=== PATIENT | male | born 1990 | race Two or more races ===

== ENCOUNTER 2018-03-19 19:25 | Inpatient (IN) | payer MEDICAID ==
[~2018-03-19] VITALS: Ht 172.7 cm; Wt 69.9 kg
[~2018-03-19 19:25] MED LIST: INSU70IN9 SC
[2018-03-19 22:50] LABS: Basophils # (auto) 0.1 uL; Basophils % (auto) 0.7 % (0.0-2.0); Eosinophils # (auto) 0.4 uL; Eosinophils % (auto) 3.8 % (0.0-7.0); Hematocrit 42.1 % (41.0-53.0); Hemoglobin 14.4 g/dL (13.5-17.5); Lymphocytes # (auto) 2.2 uL; Lymphocytes % (auto) 19.7 % (10.0-50.0); Mean Corpuscular Hemoglobin 28.2 pg (28.0-32.0); Mean Corpuscular Hgb Conc. 34.1 g/dL (32.0-36.0); Mean Corpuscular Volume 82.7 fL (80.0-100.0); Monocytes # (auto) 0.9 uL; Monocytes % (auto) 7.8 % (0.0-12.0); Neutrophils # (auto) 7.8 uL; Platelet Count (auto) 272 10^3/uL (140-450); White Blood Cell 11.4 10^3/uL (4.4-10.8)
[2018-03-19 23:07] LABS: Albumin 3.6 g/dL (3.4-5.0); Calcium 8.9 mg/dL (8.5-10.1)
[2018-03-19 23:09] LABS: Total Protein 7.7 g/dL (6.4-8.2)
[2018-03-19 23:17] LABS: Bilirubin, Total 0.4 mg/dL (0.2-1.0)
[2018-03-19 23:37] LABS: BUN/Creatinine Ratio 12.1
[2018-03-19] MEDS ORDERED: InsuLIN REG 1unit/0.01ml Soln (100units/ml) IV ONE (23:45)
[2018-03-19] MEDS ORDERED: SODIUM CHLORIDE 0.9% 1,000 ML IV ONE (23:45)
[2018-03-20] MEDS ORDERED: cefTRIAXone 1GM/10ml IVPUSH 10 ML IV ONE (03:15)
[2018-03-20] MEDS ORDERED: VANCOMYCIN 1GM/250ML 250 ML IV ONE (03:15)
[2018-03-20] MEDS ORDERED: DEXTROSE (50%) 50ML SYRG IV PRN (03:45)
[2018-03-20] MEDS ORDERED: HYDROcodone-ACET 5/325MG TAB PO PRN (03:45)
[2018-03-20] MEDS ORDERED: ACETAMINOPHEN 325 MG TAB PO PRN (03:45)
[2018-03-20] MEDS ORDERED: ONDANSETRON HCL 4 MG/2 ML VIAL IV PRN (03:45)
[2018-03-20] MEDS: SODIUM CHLORIDE 0.9% 1,000 ML IV SCH ×2 (04:16→05:16)
[2018-03-20] MEDS: ACCU-CHEK COMFORT CURVE STRIP VI SCH ×2 (06:00→12:13)
[2018-03-20] MEDS: InsuLIN REG 1unit/0.01ml Soln (100units/ml) SC SCH ×2 (06:00→12:19)
[2018-03-20] MEDS: CLINDAMYCIN 600MG IV 50 ML IV SCH ×2 (06:00→14:32)
[2018-03-20] MEDS ORDERED: cefTRIAXone 1GM/10ml IVPUSH 10 ML IV SCH (09:00)
[2018-03-20] MEDS ORDERED: FAMOTIDINE 20 MG TAB PO SCH (10:00)
[2018-03-20 10:36] LABS: INR 0.96 (0.9-1.15); Partial Thromboplastin Time 29.2 sec (23.78-33.04); Prothrombin Time 10.3 sec (9.27-12.13)
[2018-03-20] MEDS ORDERED: METHADONE HCL 10 MG TAB PO SCH (14:30)
[2018-03-20 15:31] VITALS: BP 111/63
== END 2018-03-20 16:19 | disposition left against medical advice (07) | DRG 720 ==
LOC: ER 19:25 → OVERFLOW 19:26
PROVIDERS: ADMIT Nurse Practitioner; ATTEND Internal Medicine
DX: A41.9 Sepsis, unspecified organism (principal); E10.65 Type 1 diabetes mellitus with hyperglycemia; E11.9 Type 2 diabetes mellitus without complications; L02.413 Cutaneous abscess of right upper limb; F17.210 Nicotine dependence, cigarettes, uncomplicated; F11.10 Opioid abuse, uncomplicated; L03.113 Cellulitis of right upper limb; Z53.21 Procedure and treatment not carried out due to patient leaving prior to being seen by health care provider; Z71.6 Tobacco abuse counseling; Z79.4 Long term (current) use of insulin; Z91.14 Patient's other noncompliance with medication regimen; Z91.19 Patient's noncompliance with other medical treatment and regimen
CPT/HCPCS: 36415; 76881; 80053; 82010; 82962; 83036; 85025; 85610; 85730; 87040; 96361; 96365; 96375; J0696; J1815; J3490

== ENCOUNTER 2019-03-09 22:22 | Inpatient (IN) | payer MEDICAID ==
[~2019-03-09] VITALS: Ht 172.7 cm; Wt 59.0 kg
[~2019-03-09 22:22] MED LIST changes: +INSREG3 SC; +INSU70IN3 SC; -INSU70IN9 SC
[2019-03-10] MEDS ORDERED: cefTRIAXone SOD 1,000 MG VL IM ONE (01:15)
[2019-03-10] MEDS ORDERED: SODIUM CHLORIDE 0.9% 1,000 ML IV ONE ×2 (01:45→02:45)
[2019-03-10] MEDS ORDERED: cefTRIAXone 1GM/50ML D5W 50 ML IV ONE (02:00)
[2019-03-10] MEDS ORDERED: LIDOCAINE 1% HCL (LOCAL ANESTH.) INJ 20ML MDV IJ ONE (02:00)
[2019-03-10 02:12] LABS: Basophils # (auto) 0.1 uL; Eosinophils # (auto) 0.1 uL; Nucleated Red Blood Cells % 0.1 %
[2019-03-10 02:14] LABS: Basophils % (auto) 0.6 % (0.0-2.0); Eosinophils % (auto) 0.9 % (0.0-7.0); Hematocrit 45.7 % (41.0-53.0); Lymphocytes # (auto) 2.1 uL; Lymphocytes % (auto) 17.3 % (10.0-50.0); Mean Corpuscular Hemoglobin 27.8 pg (28.0-32.0); Mean Corpuscular Hgb Conc. 32.9 g/dL (32.0-36.0); Mean Corpuscular Volume 84.6 fL (80.0-100.0); Monocytes # (auto) 0.8 uL; Monocytes % (auto) 6.5 % (0.0-12.0); Neutrophils # (auto) 8.9 uL; Neutrophils % (auto) 74.7 % (37.0-80.0); Platelet Count (auto) 508 10^3/uL (140-450); Red Cell Distribution Width 13.7 % (11.8-14.3); White Blood Cell 11.9 10^3/uL (4.4-10.8)
[2019-03-10 02:20] LABS: INR < 0.93 (0.9-1.15); Partial Thromboplastin Time 29.1 sec (23.64-32.05)
[2019-03-10 02:21] LABS: Albumin 3.9 g/dL (3.4-5.0); Calcium 8.8 mg/dL (8.5-10.1); Potassium 4.2 mmol/L (3.5-5.1)
[2019-03-10 02:23] LABS: Bilirubin, Total 0.6 mg/dL (0.2-1.0); Total Protein 8.4 g/dL (6.4-8.2)
[2019-03-10 02:26] LABS: BUN/Creatinine Ratio 8.6
[2019-03-10] MEDS ORDERED: InsuLIN REG 1unit/0.01ml Soln (100units/ml) IV ONE ×2 (02:30→04:15)
[2019-03-10] MEDS ORDERED: LORazepam 2MG/ML-1ML VIAL IV ONE (04:15)
[2019-03-10] MEDS ORDERED: InsuLIN R (HUMAN) 100 UNITS in SODIUM CHL 0.9% 99 ML IV SCH (04:54)
[2019-03-10] MEDS ORDERED: MORPHINE SULF INJ 2 MG/ML SYRINGE 1ML IV PRN (05:00)
[2019-03-10] MEDS ORDERED: LORazepam 2MG/ML-1ML VIAL IV PRN (05:00)
[2019-03-10] MEDS ORDERED: NITROGLYCERIN 0.4 MG SL TAB SL PRN (05:00)
[2019-03-10] MEDS ORDERED: VANCOMYCIN PER PHARMACY 0 MG IV SCH (05:00)
[2019-03-10] MEDS ORDERED: DEXTROSE (50%) 50ML SYRG IV PRN (05:00)
[2019-03-10] MEDS ORDERED: InsuLIN REG 1unit/0.01ml Soln (100units/ml) ONE (05:10)
[2019-03-10 05:38] LABS: Basophils # (auto) 0 uL; Basophils % (auto) 0.4 % (0.0-2.0); Eosinophils # (auto) 0.2 uL; Eosinophils % (auto) 1.3 % (0.0-7.0); Hematocrit 41.2 % (41.0-53.0); Hemoglobin 13.5 g/dL (13.5-17.5); Lymphocytes # (auto) 1.9 uL; Lymphocytes % (auto) 16.2 % (10.0-50.0); Mean Corpuscular Hemoglobin 27.5 pg (28.0-32.0); Mean Corpuscular Hgb Conc. 32.8 g/dL (32.0-36.0); Mean Corpuscular Volume 83.8 fL (80.0-100.0); Monocytes # (auto) 0.9 uL; Monocytes % (auto) 7.1 % (0.0-12.0); Platelet Count (auto) 446 10^3/uL (140-450); Red Blood Cells 4.92 10^6/uL (4.5-5.90); Red Cell Distribution Width 13.1 % (11.8-14.3)
[2019-03-10] MEDS: SODIUM CHLORIDE 0.9% 1,000 ML IV SCH ×2 (05:43→07:03)
[2019-03-10] MEDS ORDERED: VANCOMYCIN 1GM/250ML 250 ML IV ONE (06:00)
[2019-03-10 06:10] LABS: BUN/Creatinine Ratio 9.7; Magnesium 1.7 mg/dL (1.6-2.6); Phosphorus 1.3 mg/dL (2.5-4.90); Potassium 3.5 mmol/L (3.5-5.1)
[2019-03-10] MEDS: ACCU-CHEK COMFORT CURVE STRIP VI SCH ×4 (06:17→10:30)
[2019-03-10 06:37] LABS: Urine WBC None Seen /hpf (0 - 3)
[2019-03-10 07:00] LABS: Alcohol, Urine < 3.0 mg/dL (0-5); Amphetamine Screen, Urine NEGATIVE (NEGATIVE); Barbiturate Scree,Urine NEGATIVE (NEGATIVE); Benzodiazephine Screen, Urine NEGATIVE (NEGATIVE); Cannabinoid Screen, Urine NEGATIVE (NEGATIVE); Cocaine Screen, Urine NEGATIVE (NEGATIVE); Opiate Scree,Urine POSITIVE (NEGATIVE); Phencyclidine Screen, Urine NEGATIVE (NEGATIVE)
[2019-03-10 07:45] LABS: Urine Bacteria NONE SEEN /hpf (None Seen); Urine Blood Negative /uL (Negative); Urine Mucus FEW (None Seen); Urine Specific Gravity 1.024 (1.001-1.035)
[2019-03-10] MEDS ORDERED: FAMOTIDINE (10MG/ML) 2ML VL IV SCH (10:00)
[2019-03-10] MEDS ORDERED: SODIUM CHLORIDE 0.9% 1,000 ML IV SCH (10:54)
[2019-03-10 11:00] VITALS: BP 103/67
[2019-03-10] MEDS ORDERED: D5W/SOD CHL 0.45% 1,000 ML IV SCH (11:00)
[2019-03-10 11:30] LABS: Calcium 8.1 mg/dL (8.5-10.1); Potassium 3.3 mmol/L (3.5-5.1)
[2019-03-10] MEDS ORDERED: POTASSIUM CHLORIDE 40 MEQ, LIDOCAINE 1% (LOCAL ANESTH.) 4 ML in SODIUM CHL 0.9% 100 ML IV ONE (11:45)
[2019-03-10] MEDS ORDERED: D5W/SOD CHL 0.45%/KCL 40MEQ 1,000 ML IV SCH (15:45)
[2019-03-10] MEDS ORDERED: POTASSIUM EFFERVESENT TAB 25 MEQ GT ONE (15:45)
[2019-03-10] MEDS ORDERED: VANCOMYCIN 1GM/250ML 250 ML IV SCH (19:00)
[2019-03-10] MEDS ORDERED: INSULIN LANTUS (GLARGINE) 1 /0.01ml (100units/ml) SC SCH (22:00)
[2019-03-11] MEDS ORDERED: cefTRIAXone 1GM/50ML D5W 50 ML IV SCH
== END 2019-03-10 11:25 | disposition left against medical advice (07) | DRG 720 ==
LOC: ER 22:24 → TELE 22:25
PROVIDERS: ADMIT Nurse Practitioner Acute Care; ATTEND Internal Medicine Nephrology
PROC: 0X990ZZ Drainage of Left Upper Arm, Open Approach (ICD-10-PCS; principal; 2019-03-10)
DX: A41.9 Sepsis, unspecified organism (principal); E10.10 Type 1 diabetes mellitus with ketoacidosis without coma; R64 Cachexia; L02.414 Cutaneous abscess of left upper limb; L03.114 Cellulitis of left upper limb; E86.0 Dehydration; F41.9 Anxiety disorder, unspecified; I10 Essential (primary) hypertension; Z53.21 Procedure and treatment not carried out due to patient leaving prior to being seen by health care provider; Z79.4 Long term (current) use of insulin; Z82.49 Family history of ischemic heart disease and other diseases of the circulatory system; Z83.3 Family history of diabetes mellitus; Z87.891 Personal history of nicotine dependence; Z91.14 Patient's other noncompliance with medication regimen; Z68.1 Body mass index [BMI] 19.9 or less, adult; Z79.899 Other long term (current) drug therapy
CPT/HCPCS: 10060; 36415; 36600; 80048; 80053; 80307; 81001; 82010; 82805; 82962; 83036; 83605; 83735; 83930; 84100; 85025; 85610; 85730; 87040; 93306; 96365; 96367; 96375; 99291; G0378; J0696; J1815; J2001; J3490

== ENCOUNTER 2019-03-28 14:52 | Emergency (ER) | payer MEDICAID ==
[~2019-03-28] VITALS: Ht 177.8 cm; Wt 56.2 kg
[2019-03-28 15:19] LABS: Basophils # (auto) 0.1 uL; Basophils % (auto) 1.1 % (0.0-2.0); Eosinophils # (auto) 0.1 uL; Eosinophils % (auto) 2.8 % (0.0-7.0); Hematocrit 37.8 % (41.0-53.0); Hemoglobin 12.4 g/dL (13.5-17.5); Lymphocytes # (auto) 1.1 uL; Lymphocytes % (auto) 24.4 % (10.0-50.0); Mean Corpuscular Hemoglobin 28.2 pg (28.0-32.0); Mean Corpuscular Hgb Conc. 32.8 g/dL (32.0-36.0); Monocytes # (auto) 0.4 uL; Monocytes % (auto) 8.4 % (0.0-12.0); Neutrophils % (auto) 63.3 % (37.0-80.0); Nucleated Red Blood Cells % 0.1 %; Platelet Count (auto) 288 10^3/uL (140-450); Red Cell Distribution Width 14.6 % (11.8-14.3); White Blood Cell 4.7 10^3/uL (4.4-10.8)
[2019-03-28 15:50] LABS: Albumin 3.1 g/dL (3.4-5.0); Calcium 7.5 mg/dL (8.5-10.1); Potassium 4.1 mmol/L (3.5-5.1)
[2019-03-28 15:54] LABS: Urine Bacteria NONE SEEN /hpf (None Seen); Urine Blood Negative /uL (Negative); Urine Specific Gravity 1.028 (1.001-1.035); Urine WBC <1 /hpf (0 - 3)
[2019-03-28 15:59] LABS: BUN/Creatinine Ratio 8.3; Bilirubin, Total 0.5 mg/dL (0.2-1.0); Total Protein 6.2 g/dL (6.4-8.2)
[2019-03-28] MEDS ORDERED: InsuLIN R (HUMAN) 100 UNITS in SODIUM CHL 0.9% 99 ML IV SCH ×2 (17:20→20:32)
[2019-03-28] MEDS ORDERED: InsuLIN REG 1unit/0.01ml Soln (100units/ml) IV ONE (17:30)
[2019-03-28] MEDS ORDERED: DEXTROSE (50%) 50ML SYRG IV PRN (17:30)
[2019-03-28] MEDS ORDERED: MORPHINE SULF INJ 2 MG/ML SYRINGE 1ML IV PRN (18:30)
[2019-03-28] MEDS ORDERED: NITROGLYCERIN 0.4 MG SL TAB SL PRN (18:30)
[2019-03-28] MEDS ORDERED: SODIUM CHLORIDE 0.9% 1,000 ML IV SCH (18:30)
[2019-03-28] MEDS ORDERED: LORazepam 2MG/ML-1ML VIAL IV PRN (18:30)
[2019-03-28] MEDS ORDERED: ONDANSETRON ODT 4 MG TAB PO PRN (18:30)
[2019-03-28] MEDS ORDERED: SODIUM CHLORIDE 0.9% 2,000 ML IV ONE (18:30)
[2019-03-28] MEDS ORDERED: MORPHINE SULFATE 4 MG/ML SYR/VIAL IV PRN (18:30)
[2019-03-28] MEDS: ACCU-CHEK COMFORT CURVE STRIP VI SCH ×3 (18:42→21:00)
[2019-03-28 19:26] LABS: Alcohol, Urine < 3.0 mg/dL (0-5); Amphetamine Screen, Urine POSITIVE (NEGATIVE); Barbiturate Scree,Urine NEGATIVE (NEGATIVE); Benzodiazephine Screen, Urine NEGATIVE (NEGATIVE); Cannabinoid Screen, Urine NEGATIVE (NEGATIVE); Cocaine Screen, Urine NEGATIVE (NEGATIVE); Opiate Scree,Urine POSITIVE (NEGATIVE); Phencyclidine Screen, Urine NEGATIVE (NEGATIVE)
[2019-03-28] MEDS ORDERED: NICOTINE 14 MG/24HR TOPICAL PATCH TD ONE (21:30)
[2019-03-28 23:00] VITALS: BP 95/58
[2019-03-29] MEDS ORDERED: NICOTINE 14 MG/24HR TOPICAL PATCH TD SCH (10:00)
== END 2019-03-28 23:45 | disposition left against medical advice (07) ==
LOC: EDBD 14:52 → ER 14:52 → UNDOADMIN 14:53 → TELE 14:53 → ER 23:45
DX: E11.65 Type 2 diabetes mellitus with hyperglycemia (principal); E11.10 Type 2 diabetes mellitus with ketoacidosis without coma; E83.51 Hypocalcemia; E46 Unspecified protein-calorie malnutrition; I10 Essential (primary) hypertension; F12.90 Cannabis use, unspecified, uncomplicated; F15.90 Other stimulant use, unspecified, uncomplicated; Z91.19 Patient's noncompliance with other medical treatment and regimen; Z79.4 Long term (current) use of insulin; Z53.29 Procedure and treatment not carried out because of patient's decision for other reasons
CPT/HCPCS: 36415; 80053; 80307; 81001; 82010; 82962; 83690; 83735; 84100; 85025; 96361; 96365; 99283; J1815; J7030; 80048; 96376

== ENCOUNTER 2019-03-28 23:59 | Inpatient (IN) | payer MEDICAID ==
[~2019-03-28] VITALS: Ht 172.7 cm; Wt 56.7 kg
[2019-03-29] MEDS ORDERED: InsuLIN REG 1unit/0.01ml Soln (100units/ml) IV ONE (04:30)
[2019-03-29] MEDS ORDERED: SODIUM CHLORIDE 0.9% 3,000 ML IV ONE (04:30)
[2019-03-29] MEDS ORDERED: SODIUM BICARBONATE 8.4 % INJ 50ML VIAL IV ONE (04:45)
[2019-03-29] MEDS ORDERED: InsuLIN R (HUMAN) 100 UNITS in SODIUM CHL 0.9% 99 ML IV SCH ×2 (04:47→09:18)
[2019-03-29] MEDS ORDERED: SODIUM CHLORIDE 0.9% 1,000 ML IV ONE (05:00)
[2019-03-29] MEDS ORDERED: DEXTROSE (50%) 50ML SYRG IV PRN ×2 (05:00→12:00)
[2019-03-29 05:22] LABS: Urine Bacteria NONE SEEN /hpf (None Seen); Urine Blood Negative /uL (Negative); Urine Specific Gravity 1.032 (1.001-1.035); Urine WBC 1 /hpf (0 - 3)
[2019-03-29] MEDS ORDERED: InsuLIN REG 1unit/0.01ml Soln (100units/ml) ONE (05:24)
[2019-03-29 06:06] LABS: Alcohol, Urine < 3.0 mg/dL (0-5); Amphetamine Screen, Urine POSITIVE (NEGATIVE); Barbiturate Scree,Urine NEGATIVE (NEGATIVE); Benzodiazephine Screen, Urine NEGATIVE (NEGATIVE); Cannabinoid Screen, Urine POSITIVE (NEGATIVE); Cocaine Screen, Urine NEGATIVE (NEGATIVE); Opiate Scree,Urine POSITIVE (NEGATIVE); Phencyclidine Screen, Urine NEGATIVE (NEGATIVE)
[2019-03-29 06:27] LABS: Basophils # (auto) 0.1 uL; Eosinophils # (auto) 0.2 uL; Eosinophils % (auto) 3.1 % (0.0-7.0); Lymphocytes # (auto) 1.9 uL; Mean Corpuscular Hemoglobin 28.5 pg (28.0-32.0); Mean Corpuscular Hgb Conc. 33.3 g/dL (32.0-36.0); Mean Corpuscular Volume 85.7 fL (80.0-100.0); Monocytes # (auto) 0.6 uL; Monocytes % (auto) 7.6 % (0.0-12.0); Neutrophils # (auto) 4.5 uL; Neutrophils % (auto) 62.3 % (37.0-80.0); Nucleated Red Blood Cells % 0.1 %; Platelet Count (auto) 300 10^3/uL (140-450); Red Cell Distribution Width 15.2 % (11.8-14.3); White Blood Cell 7.3 10^3/uL (4.4-10.8)
[2019-03-29] MEDS: ACCU-CHEK COMFORT CURVE STRIP VI SCH ×6 (06:28→14:06)
[2019-03-29 06:45] LABS: Magnesium 1.7 mg/dL (1.6-2.6)
[2019-03-29 06:49] LABS: BUN/Creatinine Ratio 7.1; Phosphorus 1.2 mg/dL (2.5-4.90)
[2019-03-29] MEDS ORDERED: MORPHINE SULF INJ 2 MG/ML SYRINGE 1ML IV PRN (07:00)
[2019-03-29] MEDS ORDERED: NITROGLYCERIN 0.4 MG SL TAB SL PRN (07:00)
[2019-03-29] MEDS ORDERED: ONDANSETRON HCL 4 MG/2 ML VIAL IV PRN (07:00)
[2019-03-29 07:02] LABS: Potassium 2.8 mmol/L (3.5-5.1)
[2019-03-29 07:38] LABS: Calcium 7.3 mg/dL (8.5-10.1)
[2019-03-29] MEDS: SODIUM CHLORIDE 0.9% 1,000 ML IV SCH ×2 (07:44→08:47)
[2019-03-29] MEDS ORDERED: SODIUM CHLORIDE 0.9% 1,000 ML IV SCH ×3 (08:47→12:00)
[2019-03-29] MEDS: POTASSIUM CHL 20MEQ/100ML 100 ML IV SCH ×2 (08:48→10:42)
[2019-03-29 11:29] LABS: BUN/Creatinine Ratio 6.3; Calcium 7.1 mg/dL (8.5-10.1)
[2019-03-29 11:33] LABS: Potassium 2.9 mmol/L (3.5-5.1)
[2019-03-29] MEDS ORDERED: INSULIN LANTUS (GLARGINE) 1 /0.01ml (100units/ml) SC ONE (11:45)
[2019-03-29] MEDS ORDERED: InsuLIN REG 1unit/0.01ml Soln (100units/ml) SC SCH (12:00)
[2019-03-29] MEDS ORDERED: POTASSIUM CHL 20 Meq TABLET PO ONE (12:00)
[2019-03-29] MEDS ORDERED: ACCU-CHEK COMFORT CURVE STRIP VI SCH (12:00)
[2019-03-29 13:32] VITALS: BP 114/62
[2019-03-29 13:59] LABS: BUN/Creatinine Ratio 4.6; Calcium 7.5 mg/dL (8.5-10.1)
[2019-03-29] MEDS ORDERED: INSULIN LANTUS (GLARGINE) 1 /0.01ml (100units/ml) SC SCH (22:00)
[2019-03-30 10:04] LABS: Hepatitis B Surface Antibody Negative
[2019-03-30 10:40] LABS: Hepatitis A Total Antibody Positive
[2019-03-30 13:45] LABS: Hepatitis B Surface Antigen Negative (Negative); Hepatitis C Antibody Negative (Negative)
[2019-03-30 14:08] LABS: Hepatitis B Core Total AB Negative
== END 2019-03-29 14:03 | disposition left against medical advice (07) | DRG 420 ==
LOC: ER 03-29 00:03 → OVERFLOW 03-29 00:04
PROVIDERS: ADMIT Nurse Practitioner; ATTEND Nurse Practitioner
DX: E11.10 Type 2 diabetes mellitus with ketoacidosis without coma (principal); E86.0 Dehydration; E87.6 Hypokalemia; I10 Essential (primary) hypertension; Z53.29 Procedure and treatment not carried out because of patient's decision for other reasons; F19.10 Other psychoactive substance abuse, uncomplicated; F15.10 Other stimulant abuse, uncomplicated; F14.10 Cocaine abuse, uncomplicated; F11.10 Opioid abuse, uncomplicated; Z79.4 Long term (current) use of insulin; Z72.0 Tobacco use; Z71.6 Tobacco abuse counseling
CPT/HCPCS: 36415; 36600; 80048; 80307; 81001; 82010; 82805; 82962; 83735; 83930; 84100; 85025; 86704; 86706; 86708; 86803; 87340; 96361; 96365; 96367; 99291; G0378; J1815; J3480

== ENCOUNTER 2019-04-08 21:33 | Inpatient (IN) | payer MEDICAID ==
[~2019-04-08] VITALS: Ht 172.7 cm; Wt 59.0 kg
[2019-04-08 23:07] LABS: Basophils # (auto) 0.1 uL; Basophils % (auto) 0.6 % (0.0-2.0); Eosinophils # (auto) 0 uL; Eosinophils % (auto) 0.1 % (0.0-7.0); Hematocrit 48.7 % (41.0-53.0); Hemoglobin 15.4 g/dL (13.5-17.5); Lymphocytes # (auto) 1.5 uL; Lymphocytes % (auto) 7.6 % (10.0-50.0); Mean Corpuscular Hemoglobin 27.6 pg (28.0-32.0); Mean Corpuscular Hgb Conc. 31.6 g/dL (32.0-36.0); Mean Corpuscular Volume 87.3 fL (80.0-100.0); Monocytes # (auto) 1.4 uL; Monocytes % (auto) 6.7 % (0.0-12.0); Neutrophils # (auto) 17.3 uL; Nucleated Red Blood Cells % 0.1 %; Platelet Count (auto) 403 10^3/uL (140-450); Red Blood Cells 5.58 10^6/uL (4.5-5.90); Red Cell Distribution Width 15.6 % (11.8-14.3); White Blood Cell 20.4 10^3/uL (4.4-10.8)
[2019-04-08] MEDS ORDERED: ONDANSETRON HCL 4 MG/2 ML VIAL IV ONE (23:15)
[2019-04-08] MEDS ORDERED: MORPHINE SULFATE 4 MG/ML SYR/VIAL IV ONE (23:15)
[2019-04-08 23:27] LABS: Alanine Aminotransferase 16 U/L (16-61); Albumin 3.5 g/dL (3.4-5.0); Aspartate Aminotransferase 10 U/L (15-37); BUN/Creatinine Ratio 11.3; Blood Alcohol < 3.0 mg/dL (0-5); Blood Urea Nitrogen 13 mg/dL (7-18); Calcium 7.8 mg/dL (8.5-10.1); Chloride 99 mmol/L (98-107); GFR African American 99 mL/min; GFR Non-African American 82 mL/min; Glucose 393 mg/dL (74-106); Potassium 3.5 mmol/L (3.5-5.1); Sodium 131 mmol/L (136-145)
[2019-04-08 23:33] LABS: Alkaline Phosphatase 171 U/L (45-117); Bilirubin, Total 0.5 mg/dL (0.2-1.0); Total Protein 7.3 g/dL (6.4-8.2)
[2019-04-08 23:35] LABS: Anion Gap 29 (5-15); Carbon Dioxide 3 mmol/L (21-32)
[2019-04-09] MEDS ORDERED: MORPHINE SULFATE 4 MG/ML SYR/VIAL IV ONE
[2019-04-09] MEDS ORDERED: SODIUM CHLORIDE 0.9% 2,000 ML IV ONE
[2019-04-09 00:06] LABS: Urine Bacteria FEW /hpf (None Seen); Urine Blood 1+ /uL (Negative); Urine Specific Gravity 1.026 (1.001-1.035); Urine WBC 1 /hpf (0 - 3)
[2019-04-09 00:11] LABS: Alcohol, Urine < 3.0 mg/dL (0-5); Barbiturate Scree,Urine NEGATIVE (NEGATIVE); Benzodiazephine Screen, Urine NEGATIVE (NEGATIVE); Cannabinoid Screen, Urine NEGATIVE (NEGATIVE); Cocaine Screen, Urine NEGATIVE (NEGATIVE); Opiate Scree,Urine POSITIVE (NEGATIVE); Phencyclidine Screen, Urine NEGATIVE (NEGATIVE)
[2019-04-09 00:22] LABS: Amphetamine Screen, Urine POSITIVE (NEGATIVE)
[2019-04-09] MEDS ORDERED: InsuLIN REG 1unit/0.01ml Soln (100units/ml) IV ONE (00:30)
[2019-04-09] MEDS ORDERED: InsuLIN R (HUMAN) 100 UNITS in SODIUM CHL 0.9% 99 ML IV SCH (02:38)
[2019-04-09] MEDS ORDERED: MORPHINE SULF INJ 2 MG/ML SYRINGE 1ML IV PRN (02:45)
[2019-04-09] MEDS ORDERED: TEMAZEPAM 15 MG CAP PO PRN (02:45)
[2019-04-09] MEDS ORDERED: NITROGLYCERIN 0.4 MG SL TAB SL PRN (02:45)
[2019-04-09] MEDS ORDERED: ACETAMINOPHEN 325 MG TAB PO PRN (02:45)
[2019-04-09] MEDS ORDERED: ONDANSETRON HCL 4 MG/2 ML VIAL IV PRN (02:45)
[2019-04-09] MEDS ORDERED: DEXTROSE (50%) 50ML SYRG IV PRN (02:45)
[2019-04-09] MEDS ORDERED: InsuLIN REG 1unit/0.01ml Soln (100units/ml) ONE (03:15)
[2019-04-09] MEDS ORDERED: CALCIUM GLUC 4.65meq/50ml D5AE 50 ML IV ONE (03:15)
[2019-04-09 03:43] LABS: BUN/Creatinine Ratio 14.3; Calcium 7.1 mg/dL (8.5-10.1)
[2019-04-09] MEDS ORDERED: SODIUM BICARBONATE 8.4 % INJ 50ML VIAL IV ONE ×2 (03:45)
[2019-04-09] MEDS: ACCU-CHEK COMFORT CURVE STRIP VI SCH ×8 (03:50→13:36)
[2019-04-09] MEDS: SODIUM CHLORIDE 0.9% 1,000 ML IV SCH ×2 (04:07→05:42)
[2019-04-09] MEDS ORDERED: SODIUM CHLORIDE 0.9% 1,000 ML IV SCH ×2 (06:38→08:38)
[2019-04-09 09:30] LABS: Albumin 2.6 g/dL (3.4-5.0); Calcium 7.6 mg/dL (8.5-10.1)
[2019-04-09 09:33] LABS: BUN/Creatinine Ratio 10.5; Bilirubin, Total 0.4 mg/dL (0.2-1.0); Total Protein 5.4 g/dL (6.4-8.2)
[2019-04-09 09:36] LABS: Potassium 2.9 mmol/L (3.5-5.1)
[2019-04-09] MEDS ORDERED: ONDANSETRON HCL 4 MG/2 ML VIAL IV ONE (09:45)
[2019-04-09] MEDS ORDERED: POTASSIUM CHL 20MEQ/100ML 200 ML IV PRN (09:45)
[2019-04-09] MEDS ORDERED: MORPHINE SULF INJ 2 MG/ML SYRINGE 1ML IV ONE (09:45)
[2019-04-09] MEDS ORDERED: FAMOTIDINE 20 MG TAB PO SCH (10:00)
[2019-04-09] MEDS ORDERED: D5W/SOD CHL 0.45%/KCL 20MEQ 1,000 ML IV SCH (11:06)
[2019-04-09 11:42] VITALS: BP 114/68
[2019-04-09] MEDS ORDERED: LORazepam 2MG/ML-1ML VIAL ONE (12:10)
[2019-04-09] MEDS ORDERED: LORazepam 2MG/ML-1ML VIAL IV PRN (12:15)
[2019-04-09 14:18] LABS: Albumin 2.7 g/dL (3.4-5.0); Calcium 7.7 mg/dL (8.5-10.1)
[2019-04-09 14:23] LABS: BUN/Creatinine Ratio 9.3; Bilirubin, Total 0.4 mg/dL (0.2-1.0); Total Protein 5.9 g/dL (6.4-8.2)
== END 2019-04-09 15:53 | disposition left against medical advice (07) | DRG 422 ==
LOC: ER 21:33 → TELE 21:34 → MERGE 21:34 → TELE 04-09 15:33
PROVIDERS: ADMIT Nurse Practitioner; ATTEND Internal Medicine Pulmonary Disease
DX: E86.0 Dehydration (principal); E11.10 Type 2 diabetes mellitus with ketoacidosis without coma; D72.829 Elevated white blood cell count, unspecified; E87.6 Hypokalemia; Z53.29 Procedure and treatment not carried out because of patient's decision for other reasons; F15.90 Other stimulant use, unspecified, uncomplicated; F17.210 Nicotine dependence, cigarettes, uncomplicated; Z91.14 Patient's other noncompliance with medication regimen; Z79.4 Long term (current) use of insulin
CPT/HCPCS: 36415; 36600; 80048; 80053; 80307; 80320; 81001; 82010; 82805; 82962; 83036; 85025; G0378; J0610; J1815; J2405; J3480

== ENCOUNTER → 2019-09-03 | Outpatient (CLI) | payer MEDICAID ==
[~2019-09-03] MED LIST changes: +FAM20T PO; +FOLITAB22 PO; +INSLANTI SC; +INSLISPI SC; -INSREG3 SC; -INSU70IN3 SC; +LINE1TAB6 PO; +NIC21P TOP
== END | disposition home or self-care (01) ==
LOC: Rad HDHVI 11:28
PROVIDERS: ATTEND Internal Medicine
DX: I36.1 Nonrheumatic tricuspid (valve) insufficiency (principal); I11.0 Hypertensive heart disease with heart failure; I50.9 Heart failure, unspecified
CPT/HCPCS: 93306

== ENCOUNTER 2020-01-04 11:48 | Emergency (ER) | payer MEDICAID, OTHER ==
[~2020-01-04] VITALS: Ht 172.7 cm; Wt 65.8 kg
[~2020-01-04 11:48] MED LIST changes: -FAM20T PO; +FAMO20TA10 PO
[2020-01-04 13:18] VITALS: BP 140/72
== END 2020-01-04 13:47 | disposition left against medical advice (07) ==
LOC: ER 11:48
DX: M79.601 Pain in right arm (principal); Z53.21 Procedure and treatment not carried out due to patient leaving prior to being seen by health care provider

== ENCOUNTER 2020-01-04 19:52 | Emergency (ER) | payer MEDICAID ==
[~2020-01-04] VITALS: Ht 172.7 cm; Wt 65.8 kg
[2020-01-04] MEDS ORDERED: InsuLIN REG 1unit/0.01ml Soln (100units/ml) SC ONE (20:45)
[2020-01-04 23:45] VITALS: BP 126/79
[2020-01-04] MEDS ORDERED: cefTRIAXone SOD 1,000 MG VL IM ONE (23:45)
== END 2020-01-05 00:19 | disposition home or self-care (01) ==
LOC: ER 20:00
DX: L02.414 Cutaneous abscess of left upper limb (principal); M79.89 Other specified soft tissue disorders; E11.9 Type 2 diabetes mellitus without complications; F17.210 Nicotine dependence, cigarettes, uncomplicated; Z79.899 Other long term (current) drug therapy
CPT/HCPCS: 82962; 96372; 99284; J0696; J1815

== ENCOUNTER 2020-03-02 05:36 | Inpatient (IN) | payer MEDICAID ==
[~2020-03-02] VITALS: Ht 172.7 cm; Wt 69.3 kg
[2020-03-02 06:41] LABS: Basophils # (auto) 0 10 ^3/uL (0-0.2); Basophils % (auto) 0.2 % (0.0-2.0); Hemoglobin 12.5 g/dL (13.5-17.5); Mean Corpuscular Hemoglobin 26.4 pg (28.0-32.0); White Blood Cell 15.9 10^3/uL (4.4-10.8)
[2020-03-02 06:43] LABS: Eosinophils # (auto) 0 10 ^3/uL (0-0.8); Eosinophils % (auto) 0.3 % (0.0-7.0); Lymphocytes # (auto) 0.6 10 ^3/uL (0.4-5.4); Lymphocytes % (auto) 3.6 % (10.0-50.0); Mean Corpuscular Hgb Conc. 32.8 g/dL (32.0-36.0); Mean Corpuscular Volume 80.5 fL (80.0-100.0); Monocytes # (auto) 1.4 10 ^3/uL (0-1.3); Neutrophils # (auto) 13.8 10 ^3/uL (1.6-8.6); Neutrophils % (auto) 86.9 % (37.0-80.0); Platelet Count (auto) 35 10^3/uL (140-450); Red Blood Cells 4.71 10^6/uL (4.5-5.90); Red Cell Distribution Width 14.8 % (11.8-14.3)
[2020-03-02 07:02] LABS: Calcium 7.7 mg/dL (8.5-10.1)
[2020-03-02 07:03] LABS: Urine Bacteria NONE SEEN /hpf (None Seen); Urine Blood Negative /uL (Negative); Urine Hyaline Cast FEW /lpf (0 - 2); Urine Specific Gravity 1.015 (1.001-1.035); Urine WBC 1 /hpf (0 - 3)
[2020-03-02 07:05] LABS: Bilirubin, Total 1.1 mg/dL (0.2-1.0); Total Protein 5.6 g/dL (6.4-8.2)
[2020-03-02 07:16] LABS: Potassium 2.5 mmol/L (3.5-5.1)
[2020-03-02] MEDS ORDERED: POTASSIUM CHL 20MEQ/100ML 100 ML IV ONE (07:30)
[2020-03-02] MEDS ORDERED: InsuLIN R (HUMAN) 100 UNITS in SODIUM CHL 0.9% 99 ML IV SCH (07:35)
[2020-03-02] MEDS ORDERED: DEXTROSE (50%) 50ML SYRG IV PRN (07:45)
[2020-03-02] MEDS ORDERED: ONDANSETRON HCL 4 MG/2 ML VIAL IV ONE (07:45)
[2020-03-02] MEDS ORDERED: SODIUM CHLORIDE 0.9% 1,000 ML IV ONE ×2 (07:45→10:00)
[2020-03-02] MEDS ORDERED: INSULIN LANTUS (GLARGINE) 1 /0.01ml (100units/ml) SC ONE (07:45)
[2020-03-02 07:51] LABS: Alcohol, Urine < 3.0 mg/dL (0-10); Amphetamine Screen, Urine NEGATIVE (NEGATIVE); Barbiturate Scree,Urine NEGATIVE (NEGATIVE); Benzodiazephine Screen, Urine NEGATIVE (NEGATIVE); Cannabinoid Screen, Urine NEGATIVE (NEGATIVE); Cocaine Screen, Urine NEGATIVE (NEGATIVE); Opiate Scree,Urine NEGATIVE (NEGATIVE); Phencyclidine Screen, Urine NEGATIVE (NEGATIVE)
[2020-03-02 08:25] LABS: CRP High Sensitivity > 19 mg/dL (< 0.3); Lactate Dehydrogenase 278 U/L (87-241)
[2020-03-02] MEDS ORDERED: MORPHINE SULF INJ 2 MG/ML SYRINGE 1ML IV PRN ×2 (10:00→10:45)
[2020-03-02] MEDS ORDERED: POTASSIUM CHLORIDE 40 MEQ, LIDOCAINE 1% (LOCAL ANESTH.) 4 ML in SODIUM CHL 0.9% 100 ML IV ONE (10:00)
[2020-03-02] MEDS ORDERED: NITROGLYCERIN 0.4 MG SL TAB SL PRN ×2 (10:00→10:45)
[2020-03-02] MEDS ORDERED: cefTRIAXone 1GM/50ML D5W 50 ML IV ONE (10:00)
[2020-03-02] MEDS ORDERED: SOD CHL 0.9%/ KCL 40MEQ 1,000 ML IV SCH (10:00)
[2020-03-02] MEDS: ACCU-CHEK COMFORT CURVE STRIP VI SCH ×10 (10:10→22:33)
[2020-03-02] MEDS ORDERED: D5W/SOD CHL 0.9%/KCL 40MEQ 1,000 ML IV ONE (10:15)
[2020-03-02] MEDS ORDERED: DOCUSATE SOD 100 MG CAP PO PRN (10:45)
[2020-03-02] MEDS ORDERED: ATORVASTATIN 20 MG TAB PO ONE (10:45)
[2020-03-02 10:53] LABS: Cholesterol 94 mg/dL (< 200)
[2020-03-02 10:57] LABS: HDL Cholesterol 8 mg/dL (40-59); LDL Cholesterol 31 mg/dL (< 100); Triglycerides 281 mg/dL (< 150)
[2020-03-02] MEDS: SOD CHL 0.9%/ KCL 40MEQ 1,000 ML IV SCH ×2 (10:57→19:20)
[2020-03-02] MEDS: AZITHROMYCIN 500MG/ 250ML 250 ML IV SCH (11:56)
[2020-03-02] MEDS: HYDROcodone-ACET 5/325MG TAB PO PRN (12:00)
[2020-03-02] MEDS: ONDANSETRON HCL 4 MG/2 ML VIAL IV PRN ×2 (13:11→18:02)
[2020-03-02] MEDS: MORPHINE SULF INJ 2 MG/ML SYRINGE 1ML IV PRN ×3 (13:11→22:09)
[2020-03-02] MEDS ORDERED: INSU100I27 SC (17:49)
[2020-03-02] MEDS ORDERED: INSU1INJ19 SC (17:49)
[2020-03-02 22:21] LABS: Calcium 7.2 mg/dL (8.5-10.1)
[2020-03-02 22:23] LABS: BUN/Creatinine Ratio 18.2
[2020-03-02 22:51] LABS: Potassium 2.6 mmol/L (3.5-5.1)
[2020-03-02] MEDS ORDERED: POTASSIUM CHL 20 Meq TABLET PO ONE (23:00)
[2020-03-03] MEDS: ACCU-CHEK COMFORT CURVE STRIP VI SCH ×9 (00:09→12:20)
[2020-03-03] MEDS: LORazepam 0.5 MG TAB PO PRN ×2 (00:20→22:57)
[2020-03-03] MEDS: SOD CHL 0.9%/ KCL 40MEQ 1,000 ML IV SCH ×3 (00:51→18:21)
[2020-03-03] MEDS: MORPHINE SULF INJ 2 MG/ML SYRINGE 1ML IV PRN ×2 (05:11→20:36)
[2020-03-03] MEDS ORDERED: cefTRIAXone 1GM/50ML D5W 50 ML IV SCH (09:00)
[2020-03-03] MEDS: INSULIN LANTUS (GLARGINE) 1 /0.01ml (100units/ml) SC SCH (11:15)
[2020-03-03] MEDS ORDERED: LINEZOLID 600MG/300ML 300 ML IV SCH (11:15)
[2020-03-03] MEDS: AZITHROMYCIN 500MG/ 250ML 250 ML IV SCH (11:18)
[2020-03-03] MEDS: ASPirin 81 mg TAB PO SCH (11:18)
[2020-03-03 11:49] LABS: Calcium 7.4 mg/dL (8.5-10.1)
[2020-03-03 11:52] LABS: BUN/Creatinine Ratio 16.2
[2020-03-03] MEDS: DOXYCYCLINE 100MG/250ML 250 ML IV SCH ×2 (12:27→21:13)
[2020-03-03 14:40] VITALS: BP 98/45
[2020-03-03 17:00] VITALS: BP 98/45
[2020-03-03 21:00] VITALS: BP 101/59
[2020-03-04] MEDS: SOD CHL 0.9%/ KCL 40MEQ 1,000 ML IV SCH ×3 (04:58→22:03)
[2020-03-04 05:00] VITALS: BP 99/70
[2020-03-04 08:00] VITALS: BP 103/61
[2020-03-04] MEDS: ASPirin 81 mg TAB PO SCH (09:18)
[2020-03-04] MEDS: DOXYCYCLINE 100MG/250ML 250 ML IV SCH ×2 (09:18→22:03)
[2020-03-04] MEDS: MORPHINE SULF INJ 2 MG/ML SYRINGE 1ML IV PRN ×3 (09:18→20:00)
[2020-03-04] MEDS: INSULIN LANTUS (GLARGINE) 1 /0.01ml (100units/ml) SC SCH (09:34)
[2020-03-04 12:00] VITALS: BP 99/66
[2020-03-04] MEDS: AZITHROMYCIN 500MG/ 250ML 250 ML IV SCH (12:21)
[2020-03-04 13:18] LABS: Basophils # (auto) 0 10 ^3/uL (0-0.2); Eosinophils # (auto) 0 10 ^3/uL (0-0.8); Hematocrit 33.2 % (41.0-53.0); Mean Corpuscular Hemoglobin 26.2 pg (28.0-32.0); Monocytes # (auto) 1.8 10 ^3/uL (0-1.3); White Blood Cell 14.2 10^3/uL (4.4-10.8)
[2020-03-04 13:20] LABS: Basophils % (auto) 0.3 % (0.0-2.0); Hemoglobin 10.9 g/dL (13.5-17.5); Lymphocytes # (auto) 0.9 10 ^3/uL (0.4-5.4); Lymphocytes % (auto) 6.3 % (10.0-50.0); Mean Corpuscular Hgb Conc. 32.9 g/dL (32.0-36.0); Mean Corpuscular Volume 79.7 fL (80.0-100.0); Monocytes % (auto) 12.7 % (0.0-12.0); Neutrophils # (auto) 11.4 10 ^3/uL (1.6-8.6); Neutrophils % (auto) 80.7 % (37.0-80.0); Nucleated Red Blood Cells % 0.1 %; Platelet Count (auto) 53 10^3/uL (140-450); Red Blood Cells 4.17 10^6/uL (4.5-5.90); Red Cell Distribution Width 14.4 % (11.8-14.3)
[2020-03-04 13:48] LABS: BUN/Creatinine Ratio 19.1; Calcium 7.4 mg/dL (8.5-10.1); Potassium 3.2 mmol/L (3.5-5.1)
[2020-03-04 16:42] VITALS: BP 105/69
[2020-03-04] MEDS: LORazepam 0.5 MG TAB PO PRN (20:53)
[2020-03-04 21:00] VITALS: BP 103/62
[2020-03-05] MEDS: MORPHINE SULF INJ 2 MG/ML SYRINGE 1ML IV PRN ×5 (00:08→20:38)
[2020-03-05] MEDS: SOD CHL 0.9%/ KCL 40MEQ 1,000 ML IV SCH ×3 (04:32→18:28)
[2020-03-05 05:00] VITALS: BP 98/62
[2020-03-05 06:02] LABS: Basophils # (auto) 0 10 ^3/uL (0-0.2); Eosinophils # (auto) 0 10 ^3/uL (0-0.8); Eosinophils % (auto) 0.2 % (0.0-7.0); Monocytes # (auto) 1.9 10 ^3/uL (0-1.3); Platelet Count (auto) 89 10^3/uL (140-450); White Blood Cell 15.1 10^3/uL (4.4-10.8)
[2020-03-05 06:04] LABS: Basophils % (auto) 0.2 % (0.0-2.0); Hematocrit 31.8 % (41.0-53.0); Hemoglobin 10.6 g/dL (13.5-17.5); Lymphocytes # (auto) 1.1 10 ^3/uL (0.4-5.4); Mean Corpuscular Hgb Conc. 33.3 g/dL (32.0-36.0); Mean Corpuscular Volume 81.3 fL (80.0-100.0); Monocytes % (auto) 12.7 % (0.0-12.0); Neutrophils % (auto) 79.9 % (37.0-80.0); Red Blood Cells 3.91 10^6/uL (4.5-5.90); Red Cell Distribution Width 15.1 % (11.8-14.3)
[2020-03-05 06:21] LABS: Calcium 7.6 mg/dL (8.5-10.1); Potassium 3.9 mmol/L (3.5-5.1)
[2020-03-05 06:28] LABS: BUN/Creatinine Ratio 22.6
[2020-03-05 08:52] VITALS: BP 104/63
[2020-03-05] MEDS: AZITHROMYCIN 500MG/ 250ML 250 ML IV SCH (09:12)
[2020-03-05] MEDS: DOXYCYCLINE 100MG/250ML 250 ML IV SCH ×2 (09:12→22:43)
[2020-03-05] MEDS: ASPirin 81 mg TAB PO SCH (09:17)
[2020-03-05] MEDS: INSULIN LANTUS (GLARGINE) 1 /0.01ml (100units/ml) SC SCH (09:18)
[2020-03-05 12:28] VITALS: BP 111/67
[2020-03-05 12:34] VITALS: BP 92/48
[2020-03-05 16:42] VITALS: BP 112/57
[2020-03-05 22:00] VITALS: BP 121/68
[2020-03-05] MEDS: HYDROcodone-ACET 5/325MG TAB PO PRN (22:42)
[2020-03-05] MEDS: LORazepam 0.5 MG TAB PO PRN (22:43)
[2020-03-05] MEDS ORDERED: INSULIN LANTUS (GLARGINE) 1 /0.01ml (100units/ml) SC ONE (23:00)
[2020-03-05] MEDS ORDERED: DEXTROSE (50%) 50ML SYRG IV PRN (23:00)
[2020-03-06] MEDS ORDERED: InsuLIN REG 1unit/0.01ml Soln (100units/ml) SC ONE (00:15)
[2020-03-06] MEDS: MORPHINE SULF INJ 2 MG/ML SYRINGE 1ML IV PRN ×5 (00:32→20:45)
[2020-03-06 05:30] VITALS: BP 103/60
[2020-03-06 06:23] LABS: Basophils # (auto) 0 10 ^3/uL (0-0.2); Eosinophils # (auto) 0.1 10 ^3/uL (0-0.8); Hemoglobin 10.1 g/dL (13.5-17.5)
[2020-03-06 06:25] LABS: Eosinophils % (auto) 0.4 % (0.0-7.0); Hematocrit 30.9 % (41.0-53.0); Lymphocytes # (auto) 1.5 10 ^3/uL (0.4-5.4); Lymphocytes % (auto) 6.9 % (10.0-50.0); Mean Corpuscular Hemoglobin 26.6 pg (28.0-32.0); Mean Corpuscular Hgb Conc. 32.7 g/dL (32.0-36.0); Mean Corpuscular Volume 81.1 fL (80.0-100.0); Monocytes # (auto) 2.6 10 ^3/uL (0-1.3); Monocytes % (auto) 11.9 % (0.0-12.0); Neutrophils # (auto) 17.6 10 ^3/uL (1.6-8.6); Neutrophils % (auto) 80.8 % (37.0-80.0); Platelet Count (auto) 145 10^3/uL (140-450); Red Blood Cells 3.81 10^6/uL (4.5-5.90); Red Cell Distribution Width 15.6 % (11.8-14.3); White Blood Cell 21.7 10^3/uL (4.4-10.8)
[2020-03-06] MEDS: SOD CHL 0.9%/ KCL 40MEQ 1,000 ML IV SCH ×3 (06:38→23:20)
[2020-03-06 06:46] LABS: Potassium 4.3 mmol/L (3.5-5.1)
[2020-03-06 06:52] LABS: BUN/Creatinine Ratio 22.4; Calcium 7.3 mg/dL (8.5-10.1)
[2020-03-06] MEDS: ACCU-CHEK COMFORT CURVE STRIP VI SCH ×4 (07:00→21:25)
[2020-03-06] MEDS: InsuLIN REG 1unit/0.01ml Soln (100units/ml) SC SCH ×4 (07:50→21:26)
[2020-03-06] MEDS: ASPirin 81 mg TAB PO SCH (09:36)
[2020-03-06] MEDS: AZITHROMYCIN 500MG/ 250ML 250 ML IV SCH (09:36)
[2020-03-06] MEDS: DOXYCYCLINE 100MG/250ML 250 ML IV SCH ×2 (09:36→21:19)
[2020-03-06] MEDS: INSULIN LANTUS (GLARGINE) 1 /0.01ml (100units/ml) SC SCH (09:41)
[2020-03-06 13:00] VITALS: BP 92/63
[2020-03-06] MEDS: HYDROcodone-ACET 5/325MG TAB PO PRN ×2 (15:03→23:41)
[2020-03-06 17:00] VITALS: BP 105/67
[2020-03-06] MEDS: ACETAMINOPHEN 325 MG TAB PO PRN (17:14)
[2020-03-06 20:00] VITALS: BP 99/56
[2020-03-06] MEDS ORDERED: DEXTROSE (50%) 50ML SYRG IV PRN (21:15)
[2020-03-06 22:00] VITALS: BP 99/56
[2020-03-06] MEDS ORDERED: InsuLIN REG 1unit/0.01ml Soln (100units/ml) SC SCH (22:00)
[2020-03-06] MEDS: LORazepam 0.5 MG TAB PO PRN (23:38)
[2020-03-07] MEDS: MORPHINE SULF INJ 2 MG/ML SYRINGE 1ML IV PRN ×4 (00:46→16:22)
[2020-03-07 05:00] VITALS: BP 103/40
[2020-03-07] MEDS: ACCU-CHEK COMFORT CURVE STRIP VI SCH ×2 (06:05→11:32)
[2020-03-07] MEDS: InsuLIN REG 1unit/0.01ml Soln (100units/ml) SC SCH ×2 (06:11→11:33)
[2020-03-07 06:38] LABS: Chloride 96 mmol/L (98-107); Sodium 128 mmol/L (136-145)
[2020-03-07 07:09] LABS: % Iron Saturation 18.3 % (20-55); Alanine Aminotransferase < 6 U/L (16-61); Albumin 1.4 g/dL (3.4-5.0); Alkaline Phosphatase 113 U/L (45-117); Anion Gap 7 (5-15); Aspartate Aminotransferase 6 U/L (15-37); BUN/Creatinine Ratio 14.8; Bilirubin, Total 0.8 mg/dL (0.2-1.0); Blood Urea Nitrogen 8 mg/dL (7-18); Calcium 7.4 mg/dL (8.5-10.1); Carbon Dioxide 25 mmol/L (21-32); GFR African American 235 mL/min; GFR Non-African American 194 mL/min; Glucose 314 mg/dL (74-106); Hematocrit 28.1 % (41.0-53.0); Hemoglobin 9.4 g/dL (13.5-17.5); Lactate Dehydrogenase 268 U/L (87-241); Magnesium 1.9 mg/dL (1.6-2.6); Mean Corpuscular Hemoglobin 26.5 pg (28.0-32.0); Mean Corpuscular Hgb Conc. 33.5 g/dL (32.0-36.0); Mean Corpuscular Volume 79.1 fL (80.0-100.0); Platelet Count (auto) 163 10^3/uL (140-450); Red Blood Cells 3.55 10^6/uL (4.5-5.90); Red Cell Distribution Width 14.6 % (11.8-14.3); Total Protein 5.3 g/dL (6.4-8.2); White Blood Cell 26.3 10^3/uL (4.4-10.8)
[2020-03-07 07:11] LABS: Basophils % (manual) 0 (0.0-2.0); Blast Cells 0; Eosinophils % (manual) 0 (0-7); Myelocytes % 0; Promyelocytes % 0; Reactive Lymphocytes 0
[2020-03-07 07:36] LABS: Band Neutrophils % (manual) 1; Lymphocytes % (manual) 5 (10.0-50.0); Metamyelocytes % 2; Monocytes % (manual) 11 (0-12)
[2020-03-07 08:00] VITALS: BP 98/60
[2020-03-07] MEDS: SOD CHL 0.9%/ KCL 40MEQ 1,000 ML IV SCH (08:42)
[2020-03-07 09:00] VITALS: BP 104/53
[2020-03-07] MEDS: INSULIN LANTUS (GLARGINE) 1 /0.01ml (100units/ml) SC SCH (09:31)
[2020-03-07] MEDS: ASPirin 81 mg TAB PO SCH (10:45)
[2020-03-07] MEDS: DOXYCYCLINE 100MG/250ML 250 ML IV SCH (10:46)
[2020-03-07] MEDS: AZITHROMYCIN 500MG/ 250ML 250 ML IV SCH (10:46)
[2020-03-07 13:00] VITALS: BP 100/53
[2020-03-07] MEDS ORDERED: DOXY-286 PO ×2 (13:08→16:57)
[2020-03-07] MEDS: ACETAMINOPHEN 325 MG TAB PO PRN (16:34)
[2020-03-07 16:57] LABS: Free T4 (Free Thyroxine) 1.14 ng/dL (0.89-1.76)
[2020-03-07 16:58] LABS: Folate (Folic Acid) 7.55 ng/mL (5.38-24)
[2020-03-07 17:00] VITALS: BP 106/48
== END 2020-03-07 16:55 | disposition home or self-care (01) | DRG 720 ==
LOC: ER 05:36 → EDBD 05:36 → OVERFLOW 05:37 → TELE-WESTW 03-03 14:36
PROVIDERS: ADMIT Hospitalist; ATTEND Internal Medicine Pulmonary Disease
DX: A41.9 Sepsis, unspecified organism (principal); E10.10 Type 1 diabetes mellitus with ketoacidosis without coma; J15.212 Pneumonia due to Methicillin resistant Staphylococcus aureus; E10.21 Type 1 diabetes mellitus with diabetic nephropathy; E10.40 Type 1 diabetes mellitus with diabetic neuropathy, unspecified; I07.1 Rheumatic tricuspid insufficiency; I38 Endocarditis, valve unspecified; D69.6 Thrombocytopenia, unspecified; Z20.828 Contact with and (suspected) exposure to other viral communicable diseases; E87.6 Hypokalemia; Z91.19 Patient's noncompliance with other medical treatment and regimen; E86.0 Dehydration; F17.210 Nicotine dependence, cigarettes, uncomplicated; Y90.9 Presence of alcohol in blood, level not specified; D64.9 Anemia, unspecified; F12.10 Cannabis abuse, uncomplicated; F15.10 Other stimulant abuse, uncomplicated; F10.10 Alcohol abuse, uncomplicated; Z82.49 Family history of ischemic heart disease and other diseases of the circulatory system; Z83.3 Family history of diabetes mellitus; Z79.4 Long term (current) use of insulin; Z79.899 Other long term (current) drug therapy
CPT/HCPCS: 36415; 36600; 71045; 71250; 80048; 80053; 80061; 80307; 81001; 82010; 82607; 82728; 82746; 82805; 82962; 83036; 83540; 83550; 83615; 83735; 84439; 84443; 84484; 85007; 85025; 85027; 86141; 86225; 86235; 87040; 87070; 87077; 87081; 87086; 87186; 87205; 87426; 93306; 96361; 96365; 96366; 96375; 99291; G0378; J0696; J1815; J2001; J2405; J3480; J3490

== ENCOUNTER 2021-07-23 15:21 | Inpatient (IN) | payer MEDICAID ==
[~2021-07-23] VITALS: Ht 175.3 cm; Wt 90.6 kg
[~2021-07-23 15:21] MED LIST changes: +DOXY-286 PO; -INSLANTI SC; -INSLISPI SC; +INSU100I27 SC; +INSU1INJ19 SC; -LINE1TAB6 PO
[2021-07-23] MEDS ORDERED: SODIUM CHLORIDE 0.9% 1,000 ML IV ONE ×3 (15:30→17:30)
[2021-07-23] MEDS ORDERED: InsuLIN REG 1unit/0.01ml Soln (100units/ml) IV ONE (15:30)
[2021-07-23 16:18] LABS: Basophils # (auto) 0.1 10 ^3/uL (0-0.2); Eosinophils # (auto) 0 10 ^3/uL (0-0.8); Eosinophils % (auto) 0.4 % (0.0-7.0); Hemoglobin 13.1 g/dL (13.5-17.5); Mean Corpuscular Volume 80.6 fL (80.0-100.0)
[2021-07-23 16:20] LABS: Basophils % (auto) 0.9 % (0.0-2.0); Hematocrit 39.8 % (41.0-53.0); Lymphocytes % (auto) 9.9 % (10.0-50.0); Mean Corpuscular Hemoglobin 26.6 pg (28.0-32.0); Monocytes # (auto) 0.7 10 ^3/uL (0-1.3); Monocytes % (auto) 7.3 % (0.0-12.0); Neutrophils # (auto) 7.9 10 ^3/uL (1.6-8.6); Neutrophils % (auto) 81.5 % (37.0-80.0); Nucleated Red Blood Cells % 0.1 %; Red Blood Cells 4.94 10^6/uL (4.5-5.90); White Blood Cell 9.6 10^3/uL (4.4-10.8)
[2021-07-23 16:36] LABS: Albumin 4.1 g/dL (3.4-5.0); Calcium 8.8 mg/dL (8.5-10.1)
[2021-07-23 16:40] LABS: BUN/Creatinine Ratio 12.8; Bilirubin, Total 0.5 mg/dL (0.2-1.0); Total Protein 8.1 g/dL (6.4-8.2)
[2021-07-23] MEDS ORDERED: InsuLIN R (HUMAN) 100 UNITS in SODIUM CHL 0.9% 99 ML IV SCH (17:30)
[2021-07-23] MEDS ORDERED: DEXTROSE (50%) 50ML SYRG IV PRN ×2 (17:30→21:45)
[2021-07-23] MEDS ORDERED: INSULIN LANTUS (GLARGINE) 1 /0.01ml (100units/ml) SC ONE (17:30)
[2021-07-23] MEDS: ACCU-CHEK COMFORT CURVE STRIP VI SCH ×3 (18:45→20:47)
[2021-07-23] MEDS ORDERED: ONDANSETRON HCL 4 MG/2 ML VIAL IV PRN (21:45)
[2021-07-23] MEDS ORDERED: MORPHINE SULFATE INJECTION 2 MG/ML SYRG IV PRN (21:45)
[2021-07-23] MEDS ORDERED: NITROGLYCERIN 0.4 MG SL TAB SL PRN (21:45)
[2021-07-23 23:20] LABS: BUN/Creatinine Ratio 14.4; Calcium 8.4 mg/dL (8.5-10.1)
[2021-07-24] MEDS: ACCU-CHEK COMFORT CURVE STRIP VI SCH ×12 (01:30→23:57)
[2021-07-24 08:49] LABS: Basophils # (auto) 0 10 ^3/uL (0-0.2); Basophils % (auto) 0.6 % (0.0-2.0); Eosinophils # (auto) 0.3 10 ^3/uL (0-0.8); Hematocrit 33.4 % (41.0-53.0); Hemoglobin 11.1 g/dL (13.5-17.5); Mean Corpuscular Hgb Conc. 33.3 g/dL (32.0-36.0); White Blood Cell 7.5 10^3/uL (4.4-10.8)
[2021-07-24 08:55] LABS: Lymphocytes # (auto) 1.6 10 ^3/uL (0.4-5.4); Mean Corpuscular Hemoglobin 26.5 pg (28.0-32.0); Mean Corpuscular Volume 79.7 fL (80.0-100.0); Monocytes # (auto) 0.8 10 ^3/uL (0-1.3); Monocytes % (auto) 10.9 % (0.0-12.0); Neutrophils # (auto) 4.8 10 ^3/uL (1.6-8.6); Neutrophils % (auto) 63.5 % (37.0-80.0); Red Blood Cells 4.18 10^6/uL (4.5-5.90); Red Cell Distribution Width 13.7 % (11.8-14.3)
[2021-07-24 08:56] LABS: Potassium 3.5 mmol/L (3.5-5.1)
[2021-07-24 09:16] LABS: Albumin 3.1 g/dL (3.4-5.0); BUN/Creatinine Ratio 13.1; Bilirubin, Total 0.6 mg/dL (0.2-1.0); Calcium 8.2 mg/dL (8.5-10.1)
[2021-07-24] MEDS: PANTOPRAZOLE 40 MG/10 ML VIAL INJ IV SCH (10:13)
[2021-07-24] MEDS: INSULIN LANTUS (GLARGINE) 1 /0.01ml (100units/ml) SC SCH (10:13)
[2021-07-24] MEDS ORDERED: NICOTINE 21MG/24 HR TOPICAL PATCH TD ONE (12:30)
[2021-07-24] MEDS ORDERED: DEXTROSE (50%) 50ML SYRG IV PRN (12:30)
[2021-07-24] MEDS: SODIUM CHLORIDE 0.9% 1,000 ML IV SCH ×2 (13:02→20:54)
[2021-07-24 16:14] LABS: BUN/Creatinine Ratio 10.6; Calcium 8.1 mg/dL (8.5-10.1); Potassium 3.4 mmol/L (3.5-5.1)
[2021-07-24] MEDS: InsuLIN REG 1unit/0.01ml Soln (100units/ml) SC SCH ×2 (16:19→20:00)
[2021-07-24 22:00] VITALS: BP 127/77
[2021-07-25] MEDS: SODIUM CHLORIDE 0.9% 1,000 ML IV SCH ×2 (04:30→12:30)
[2021-07-25] MEDS: InsuLIN REG 1unit/0.01ml Soln (100units/ml) SC SCH ×4 (04:44→12:50)
[2021-07-25] MEDS: ACCU-CHEK COMFORT CURVE STRIP VI SCH ×3 (04:57→12:00)
[2021-07-25 06:00] VITALS: BP 113/64
[2021-07-25 08:00] VITALS: BP 115/70
[2021-07-25] MEDS: PANTOPRAZOLE 40 MG/10 ML VIAL INJ IV SCH (08:45)
[2021-07-25] MEDS: INSULIN LANTUS (GLARGINE) 1 /0.01ml (100units/ml) SC SCH (08:45)
[2021-07-25] MEDS ORDERED: INSU1INJ19 SC (11:37)
[2021-07-25] MEDS ORDERED: INSU100I27 SC (11:40)
[2021-07-25 12:00] VITALS: BP 142/74
== END 2021-07-25 15:02 | disposition home or self-care (01) | DRG 420 ==
LOC: EDBD 15:21 → ER 15:21 → OVERFLOW 21:37 → WEST WING 07-24 21:55
PROVIDERS: ADMIT Nurse Practitioner; ATTEND Family Medicine
DX: E10.10 Type 1 diabetes mellitus with ketoacidosis without coma (principal); I11.0 Hypertensive heart disease with heart failure; I50.9 Heart failure, unspecified; E86.0 Dehydration; F17.210 Nicotine dependence, cigarettes, uncomplicated; Z20.822 Contact with and (suspected) exposure to COVID-19; Z83.3 Family history of diabetes mellitus; Z82.49 Family history of ischemic heart disease and other diseases of the circulatory system
CPT/HCPCS: 36415; 36600; 71045; 80048; 80053; 82010; 82805; 82962; 83036; 85025; 87426; 96361; 96365; 96366; 96372; 96375; 96376; 99291; C9113; G0378; J1815

== ENCOUNTER 2021-08-21 03:39 | Emergency (ER) | payer MEDICAID ==
[~2021-08-21] VITALS: Ht 172.7 cm; Wt 74.8 kg
[2021-08-21] MEDS ORDERED: DEXTROSE 50% SYRINGE 50 ML IV ONE (04:37)
[2021-08-21] MEDS ORDERED: DEXTROSE (50%) 50ML SYRG IV ONE (05:00)
[2021-08-21 05:36] LABS: Basophils # (auto) 0.1 10 ^3/uL (0-0.2); Eosinophils # (auto) 0.3 10 ^3/uL (0-0.8); Mean Corpuscular Volume 76.8 fL (80.0-100.0); Neutrophils # (auto) 14.9 10 ^3/uL (1.6-8.6)
[2021-08-21 05:39] LABS: Basophils % (auto) 0.6 % (0.0-2.0); Eosinophils % (auto) 1.6 % (0.0-7.0); Hematocrit 36.6 % (41.0-53.0); Hemoglobin 12.4 g/dL (13.5-17.5); Lymphocytes # (auto) 2.3 10 ^3/uL (0.4-5.4); Mean Corpuscular Hemoglobin 26.1 pg (28.0-32.0); Mean Corpuscular Hgb Conc. 34.1 g/dL (32.0-36.0); Monocytes # (auto) 1.3 10 ^3/uL (0-1.3); Monocytes % (auto) 7.1 % (0.0-12.0); Neutrophils % (auto) 78.7 % (37.0-80.0); Nucleated Red Blood Cells % 0.1 %; Red Blood Cells 4.76 10^6/uL (4.5-5.90); Red Cell Distribution Width 14.1 % (11.8-14.3)
[2021-08-21 05:52] LABS: Albumin 3.9 g/dL (3.4-5.0); BUN/Creatinine Ratio 12.2; Calcium 9.5 mg/dL (8.5-10.1)
[2021-08-21 05:55] LABS: Bilirubin, Total 0.8 mg/dL (0.2-1.0); Total Protein 7.8 g/dL (6.4-8.2)
[2021-08-21] MEDS ORDERED: cefTRIAXone 1GM/50ML D5W 50 ML IV ONE (06:45)
[2021-08-21] MEDS ORDERED: CLINDAMYCIN 600MG IV 50 ML IV ONE (06:45)
[2021-08-21] MEDS ORDERED: KETOROLAC TROMETH 30 MG/ML 1ML VIAL IV ONE (08:45)
[2021-08-21] MEDS ORDERED: IBU600T PO (08:53)
[2021-08-21] MEDS ORDERED: CLIN75CA2 PO (08:53)
[2021-08-21] MEDS ORDERED: CEPH-509 PO (08:53)
[2021-08-21 09:30] VITALS: BP 121/77
== END 2021-08-21 10:08 | disposition home or self-care (01) ==
LOC: ER 03:39
DX: L03.211 Cellulitis of face (principal); L02.01 Cutaneous abscess of face; E11.649 Type 2 diabetes mellitus with hypoglycemia without coma; I50.9 Heart failure, unspecified; F17.210 Nicotine dependence, cigarettes, uncomplicated; Z79.4 Long term (current) use of insulin; Z79.2 Long term (current) use of antibiotics; Z79.899 Other long term (current) drug therapy
CPT/HCPCS: 36415; 70487; 80053; 82010; 83605; 85025; 87040; 96365; 96366; 96368; 96375; 99285; J0696; J1885; J3490; J7042

== ENCOUNTER 2023-03-30 00:28 | Inpatient (IN) | payer MEDICAID ==
[~2023-03-30] VITALS: Ht 172.7 cm; Wt 70.4 kg
[~2023-03-30 00:28] MED LIST changes: +CEPH-509 PO; +CLIN75CA2 PO; +IBU600T PO
[2023-03-30 00:30] VITALS: O2SAT 98
[2023-03-30] MEDS ORDERED: DEXTROSE 10% 1,000 ML IV ONE (01:15)
[2023-03-30 01:49] LABS: Alanine Aminotransferase 11 U/L (7-40); Alkaline Phosphatase 94 U/L (46-116); Aspartate Aminotransferase 14 U/L (13-40); Basophils # (auto) 0.1 10 ^3/uL (0-0.2); Calcium 9.2 mg/dL (8.7-10.4); Carbon Dioxide 26 mmol/L (20-30); Chloride 106 mmol/L (98-107); Hemoglobin 10.6 g/dL (13.5-17.5); Monocytes # (auto) 0.5 10 ^3/uL (0-1.3); Neutrophils # (auto) 2.7 10 ^3/uL (1.6-8.6)
[2023-03-30 01:50] LABS: Anion Gap 6 (5-15); BUN/Creatinine Ratio 14.3 (10.0-20.0); Bilirubin, Total 0.5 mg/dL (0.2-1.0); Blood Alcohol 4.8 mg/dL (<10); Blood Urea Nitrogen 12 mg/dL (9-23); Glucose 72 mg/dL (74-106); Lipase 30 U/L (12-53); Potassium 3.7 mmol/L (3.5-5.1); Sodium 138 mmol/L (136-145); Total Protein 6.5 g/dL (5.7-8.2)
[2023-03-30 01:51] LABS: Basophils % (auto) 1.4 % (0.0-2.0); Eosinophils # (auto) 0.3 10 ^3/uL (0-0.8); Hematocrit 32.1 % (41.0-53.0); Lymphocytes # (auto) 1.4 10 ^3/uL (0.4-5.4); Lymphocytes % (auto) 28.7 % (10.0-50.0); Mean Corpuscular Hemoglobin 25.4 pg (28.0-32.0); Mean Corpuscular Hgb Conc. 33.2 g/dL (32.0-36.0); Mean Corpuscular Volume 76.6 fL (80.0-100.0); Monocytes % (auto) 9.7 % (0.0-12.0); Neutrophils % (auto) 55.2 % (37.0-80.0); Nucleated Red Blood Cells % 0.1 %; Red Blood Cells 4.19 10^6/uL (4.5-5.90); Red Cell Distribution Width 16.3 % (11.8-14.3)
[2023-03-30 02:08] LABS: INR 1.13 (0.9-1.15); Prothrombin Time 11.8 sec (9.3-11.8)
[2023-03-30] MEDS ORDERED: DEXTROSE (50%) 50ML SYRG IV ONE (02:45)
[2023-03-30] MEDS ORDERED: DEXTROSE (50%) 50ML SYRG IV PRN (03:45)
[2023-03-30] MEDS ORDERED: DOCUSATE SOD 100 MG CAP PO PRN (03:45)
[2023-03-30] MEDS ORDERED: D5W/SOD CHL 0.45% 1,000 ML IV ONE (03:45)
[2023-03-30] MEDS ORDERED: HYDROcodone-ACET 5/325MG TAB PO PRN (03:45)
[2023-03-30] MEDS ORDERED: ACETAMINOPHEN 325 MG TAB PO PRN (03:45)
[2023-03-30] MEDS ORDERED: ONDANSETRON HCL 4 MG/2 ML VIAL IV PRN (03:45)
[2023-03-30] MEDS: ACCU-CHEK COMFORT CURVE STRIP VI SCH ×6 (04:43→23:53)
[2023-03-30] MEDS: InsuLIN REG 1unit/0.01ml Soln (100units/ml) SC SCH ×6 (04:43→23:53)
[2023-03-30] MEDS ORDERED: NITROGLYCERIN 0.4 MG SL TAB SL PRN (06:00)
[2023-03-30] MEDS ORDERED: MORPHINE SULFATE INJ 2 MG/ml SYRG IV PRN (06:00)
[2023-03-30 08:23] LABS: Amphetamine Screen, Urine Pos (NEGATIVE); Barbiturate Scree,Urine Neg (NEGATIVE); Benzodiazephine Screen, Urine Neg (NEGATIVE); Cannabinoid Screen, Urine Neg (NEGATIVE); Cocaine Screen, Urine Neg (NEGATIVE); Opiate Scree,Urine Neg (NEGATIVE); Phencyclidine Screen, Urine Neg (NEGATIVE)
[2023-03-30] MEDS: FAMOTIDINE (10MG/ML) 2ML VL IV SCH ×2 (14:30→23:53)
[2023-03-30] MEDS ORDERED: GABA-1308 PO (23:31)
[2023-03-31] VITALS (7 sets, daily range): BP systolic 100–107; BP diastolic 41–60; PULSE 56–71; RESP 12–18; TEMP 97.5–98.3; O2SAT 98–100
[2023-03-31] MEDS: ACCU-CHEK COMFORT CURVE STRIP VI SCH ×5 (04:00→19:41)
[2023-03-31] MEDS: InsuLIN REG 1unit/0.01ml Soln (100units/ml) SC SCH ×5 (04:36→19:40)
[2023-03-31 05:01] LABS: Eosinophils # (auto) 0.4 10 ^3/uL (0-0.8); Hemoglobin 11.6 g/dL (13.5-17.5); Lymphocytes # (auto) 2.1 10 ^3/uL (0.4-5.4); Neutrophils # (auto) 2.1 10 ^3/uL (1.6-8.6)
[2023-03-31 05:04] LABS: Basophils # (auto) 0 10 ^3/uL (0-0.2); Eosinophils % (auto) 8.2 % (0.0-7.0); Hematocrit 35.8 % (41.0-53.0); Lymphocytes % (auto) 40.8 % (10.0-50.0); Mean Corpuscular Hgb Conc. 32.6 g/dL (32.0-36.0); Mean Corpuscular Volume 76.9 fL (80.0-100.0); Monocytes # (auto) 0.5 10 ^3/uL (0-1.3); Monocytes % (auto) 9.5 % (0.0-12.0); Neutrophils % (auto) 40.5 % (37.0-80.0); Nucleated Red Blood Cells % 0.1 %; Red Blood Cells 4.65 10^6/uL (4.5-5.90); Red Cell Distribution Width 16.6 % (11.8-14.3); White Blood Cell 5.1 10^3/uL (4.4-10.8)
[2023-03-31 05:25] LABS: Albumin 3.9 g/dL (3.2-4.8); Alkaline Phosphatase 107 U/L (46-116); Anion Gap 5 (5-15); Aspartate Aminotransferase 9 U/L (13-40); BUN/Creatinine Ratio 12.9 (10.0-20.0); Bilirubin, Total 0.4 mg/dL (0.2-1.0); Blood Urea Nitrogen 15 mg/dL (9-23); Calcium 8.9 mg/dL (8.7-10.4); Carbon Dioxide 28 mmol/L (20-30); Chloride 104 mmol/L (98-107); Potassium 4.5 mmol/L (3.5-5.1); Sodium 137 mmol/L (136-145); Total Protein 6.3 g/dL (5.7-8.2)
[2023-03-31 05:31] LABS: Alanine Aminotransferase 9 U/L (7-40); Glucose 326 mg/dL (74-106)
[2023-03-31] MEDS: FAMOTIDINE (10MG/ML) 2ML VL IV SCH ×2 (08:45→21:29)
[2023-04-01] VITALS (8 sets, daily range): BP systolic 99–142; BP diastolic 53–73; PULSE 59–85; RESP 16–18; TEMP 37; O2SAT 95–99
[2023-04-01] MEDS: InsuLIN REG 1unit/0.01ml Soln (100units/ml) SC SCH ×6 (00:47→20:42)
[2023-04-01] MEDS: ACCU-CHEK COMFORT CURVE STRIP VI SCH ×6 (04:00→20:51)
[2023-04-01] MEDS: FAMOTIDINE (10MG/ML) 2ML VL IV SCH (08:19)
[2023-04-01] MEDS ORDERED: DEXTROSE (50%) 50ML SYRG IV PRN (12:30)
[2023-04-01 15:27] LABS: Urine WBC None Seen /hpf (0 - 3)
[2023-04-01 16:22] LABS: Urine Bacteria NONE SEEN /hpf (None Seen); Urine Blood Negative /uL (Negative); Urine Clarity Clear (Clear); Urine Color Colorless (Yellow); Urine Protein, UAD Negative (Negative); Urine Specific Gravity 1.019 (1.001-1.035); Urine Urobilinogen Normal (Negative)
[2023-04-02] VITALS (7 sets, daily range): BP systolic 100–147; BP diastolic 60–74; PULSE 51–76; RESP 18–21; TEMP 97.4–98.3; O2SAT 95–99
[2023-04-02] MEDS: InsuLIN REG 1unit/0.01ml Soln (100units/ml) SC SCH ×4 (05:42→14:24)
[2023-04-02] MEDS: ACCU-CHEK COMFORT CURVE STRIP VI SCH ×4 (05:45→14:22)
[2023-04-02 08:46] LABS: Chloride 102 mmol/L (98-107); Potassium 4.2 mmol/L (3.5-5.1); Sodium 135 mmol/L (136-145)
[2023-04-02 08:47] LABS: Anion Gap 7 (5-15); Calcium 9.7 mg/dL (8.5-10.1); Carbon Dioxide 26 mmol/L (20-30)
[2023-04-02 08:52] LABS: BUN/Creatinine Ratio 16.8 (10.0-20.0); Blood Urea Nitrogen 19 mg/dL (9-23); Glucose 262 mg/dL (74-106)
[2023-04-02] MEDS ORDERED: GABAPENTIN 300 MG CAP PO ONE (14:15)
[2023-04-02] MEDS ORDERED: INSU1INJ19 SC (14:49)
[2023-04-02] MEDS ORDERED: GABAPENTIN 300 MG CAP PO SCH (22:00)
== END 2023-04-02 17:30 | disposition home or self-care (01) | DRG 420 ==
LOC: ER 00:28 → EDSEX 00:28 → EDBD 00:28 → TELE 05:55 → CENTRAL 22:22 → TELE-CENTR 22:50 → CENTRAL 04-02 03:18
PROVIDERS: ADMIT Internal Medicine; ATTEND Internal Medicine
DX: E10.649 Type 1 diabetes mellitus with hypoglycemia without coma (principal); G93.41 Metabolic encephalopathy; I50.32 Chronic diastolic (congestive) heart failure; I11.0 Hypertensive heart disease with heart failure; F15.10 Other stimulant abuse, uncomplicated; F17.210 Nicotine dependence, cigarettes, uncomplicated; Z79.4 Long term (current) use of insulin
CPT/HCPCS: 36415; 71045; 80048; 80053; 80307; 80320; 81001; 82962; 83036; 83690; 83735; 83880; 84484; 85025; 85610; 93005; 93306; 96365; 99291; G0378; J1815; J3490

== ENCOUNTER 2024-07-04 18:14 | Emergency (ER) | payer MEDICAID, OTHER ==
[~2024-07-04] VITALS: Ht 175.3 cm; Wt 81.8 kg
[~2024-07-04 18:14] MED LIST changes: -CEPH-509 PO; -CLIN75CA2 PO; -DOXY-286 PO; -FOLITAB22 PO; +GABA-1308 PO; -IBU600T PO; -NIC21P TOP
[2024-07-04 18:25] VITALS: BP 130/80; PULSE 80; RESP 16; O2SAT 96
--- NOTE | 2024-07-04 19:18 | ED.PDOC ---
History of present illness HPI Comments 33 year old male came to ER for hypoglycemia. Patient states he was [place] on the freeway, when he felt dizzy, lightheaded, so he pulled over and he could not remember what happened next. Paramedics found slumped inside his car. No damage to the car. No accident. Blood sugar noted to be 27 on scene. Patient does have history of type 1 diabetes, states he took his insulin today, but has not eaten recently. Upon arrival at the ER, blood sugar went up to 52. Aside from type 1 diabetes, he also has history of polysubstance abuse. Chief Complaint: Hypoglycemia Time Seen by MD: 19:17 Primary Care Provider: JONES History of present illness: Master Certified Rv Technician Notes Allergies: Coded Allergies: NO KNOWN ALLERGIES (Unverified , 09/25/12) Home Meds Active Scripts Insulin Glargine (Basaglar Kwikpen) 100 Unit/Ml Inj, 25 UNIT SC BID for 30 Days, #1 INJ 3 Refills Prov:DELICIA BLAKE MD 04/02/23 Insulin Lispro (Admelog Solostar) 100 Unit/Ml Inj, 0 SC BS, #2 INJ Prov:PATO CHAHAL MD 07/25/21 Insulin Glargine (Basaglar Kwikpen) 100 Unit/Ml Inj, 20 UNIT SC BID, #2 INJ Prov:PATO CHAHAL MD 07/25/21 Famotidine (PEPCID TABLET) 20 Mg Tb, 40 MG PO DAILY, #30 TAB Prov:JENNIFER LINTON MD 06/05/19 Reported Medications Gabapentin (Gabapentin) 100 Mg Cap, 100 MG PO, CAP 03/30/23 Insulin Glargine (Basaglar Kwikpen) 100 Unit/Ml Inj, 0 SC BID, INJ 03/02/20 Insulin Lispro (Admelog Solostar) 100 Unit/Ml Inj, 0 SC PRN, INJ INJECT SC DIRECTED PER SLIDING SCALE MAX DOSE 20 UNITS 03/02/20 Information Source: Patient, Emergency Med Personnel Mode of Arrival: EMS Timing: Minutes Duration: Since onset Prehospital treatment: Accucheck [place]: Shaky, Sweaty, Confusion Symptoms: Anxious, Shaky, Sweaty, Confusion History of: Diabetes, Insulin use Past Medical History PAST MEDICAL HISTORY: DM Surgical History: Denies all surgeries Family History Family History: No family hx ofKidney coretta, No family hx of Liver coretta, No family hx of Lung coretta, No family hx of Stroke, Family hx of DM, Family hx of heart coretta, Family hx of HTN Social History Smoker: Cigarettes Alcohol: Occasionally Drugs: Heroin, Methamphetamine, Other (Fentanyl) Lives In: Home Constitutional: denies: chills, diaphoresis, fatigue, fever, malaise, sweats, weakness, others EENTM: denies: blurred vision, double vision, ear bleeding, ear discharge, ear drainage, ear pain, ear ringing, eye pain, eye redness, hearing loss, mouth pain, mouth swelling, nasal discharge, nose bleeding, nose congestion, nose pain, photophobia, tearing, throat pain, throat swelling, voice changes, others Respiratory: denies: cough, hemoptysis, orthopnea, SOB at rest, shortness of breath, SOB with excertion, stridor, wheezing, others Cardiovascular: denies: chest pain, dizzy spells, diaphoresis, Dyspnea on exertion, edema, irregular heart beat, left arm pain, lightheadedness, palpitations, PND, syncope, others Gastrointestinal: denies: abdomen distended, abdominal pain, blood streaked bowels, constipated, diarrhea, dysphagia, difficulty swallowing, hematemesis, m [place], nausea, poor appetite, poor fluid intake, rectal bleeding, rectal pain, vomiting, others Genitourinary: denies: burning, dysuria, flank pain, frequency, hematuria, incontinence, penile discharge, penile sore, pain, testicle pain, testicle swelling, urgency, others Neurological: reports: dizziness; denies: fainting, headache, left sided numbness, left sided weakness, numbness, paresthesia, pre-existing deficit, right sided numbness, right sided weakness, seizure, speech problems, tingling, tremors, weakness, others Musculoskeletal: denies: back pain, gout, joint pain, joint swelling, muscle pain, muscle stiffness, neck pain, others Integumetry: denies: bruises, change in color, change in hair/nails, dryness, laceration, lesions, lumps, rash, wounds, others Allergic/Immunocompromised: denies: Difficulty Healing, Frequent Infections, Hives, Itching, others Hematologic/Lymphatic: denies: anemia, blood clots, easy bleeding, easy bruising, swollen glands, others Endocrine: denies: excessive hunger, excessive sweating, excessive thirst, excessive urination, flushing, intolerance to cold, intolerance to heat, unexplained weight gain, unexplained weight loss, others Psychiatric: denies: anxiety, bipolar disorder, depression, hopeless, panic disorder, schizophrenia, sleepless, suicidal, others Physical Exam General Appearance: No Apparent Distress, Normal HEENT: Normal ENT Inspection, Pharynx Normal, TMs Normal Neck: Full Range of Motion, Non-Tender, Normal, Normal Inspection Respiratory: Chest Non-Tender, Lungs Clear, No Accessory Muscle Use, No Respiratory Distress, Normal Breath Sounds Cardiovascular: No Edema, No JVD, No Murmur, No Gallop, Normal Peripheral Pulses, Regular Rate/Rhythm Breast Exam: Deferred Gastrointestinal: No Organomegaly, Non Tender, No Pulsatile Mass, Normal Bowel Sounds, Soft Genitalia: Deferred Pelvic: Deferred Rectal: Deferred Extremities: No calf tenderness, Normal capillary refill, Normal inspection, Normal range of motion, Non-tender, No pedal edema Musculoskeletal : Apperance: Normal Neurologic: Alert, 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 Was a procedure done?: No Differential Diagnosis (DM) Differential Diagnosis: Encephalopathy, Hypoglycemia X-Ray, Labs, Meds, VS Vital Signs Date Time Temp Pulse Resp B/P (MAP) Pulse Ox O2 Delivery O2 Flow Rate FiO2 07/04/24 18:25 98.3 80 16 130/80 (97) 96 Lab Test 07/04/24 18:42 Range/Units POC Glucose 126 H 70-106 mg/dl Time of 1ST Reevaluation: 19:05 Reevaluation 1ST: Unchanged Patient Education/Counseling: Diagnosis, Treatment Family Education/Counseling: No Family Present Departure 1 Departure Time of Disposition: 05:45 (Patient presented hypoglycemic receive glucose patient was ordered for labs however patient eloped) Impression: Primary Impression: Hypoglycemia Additional Impression: Type 1 diabetes mellitus Qualified Codes: E10.649 - Type 1 diabetes mellitus with hypoglycemia without coma Disposition: 07 LEFT AWOL/ELOPED Condition: Serious Critical Care Note Critical Care Time?: No Stability Stability form required: No Heart Score Heart Score: Heart Score Response (Comments) Value History N/A 0 EKG N/A 0 Age N/A 0 Risk Factors N/A 0 Troponin N/A 0 Total 0 I personally scribed for HAIR VILLALOBOS MD ([email or web address]) on 07/04/24 at 19:18. Electronically submitted by Juan Allen ([facility]). HAIR VILLALOBOS MD Jul 04, 2024 19:18
== END 2024-07-04 18:55 | disposition left against medical advice (07) ==
LOC: ER 18:14 → EDBD 18:14 → ER 18:55
DX: E10.649 Type 1 diabetes mellitus with hypoglycemia without coma (principal); F17.210 Nicotine dependence, cigarettes, uncomplicated; R42 Dizziness and giddiness; F11.10 Opioid abuse, uncomplicated; F15.10 Other stimulant abuse, uncomplicated; Z79.4 Long term (current) use of insulin
CPT/HCPCS: 82962